=== PATIENT | female | born 1960 | race Hispanic/Latino ===

== ENCOUNTER 2017-03-28 17:51 | Emergency (ER) | payer MEDICARE, MEDICAID ==
[2017-03-28 17:51] VITALS: BMI 23.1
[2017-03-28 17:59] VITALS: PULSE 85; TEMP 96.8; O2SAT 98
[2017-03-28] MEDS ORDERED: Albuterol-Ipratrop 3 mg / 0.5 (3 ml) UD INH STA ×3 (18:12→19:15)
[2017-03-28 18:14] VITALS: RESP 20
--- NOTE | 2017-03-28 18:18 | ED PDOC ---
HPI: SOB/CHF/COPD Time Seen by Provider: 03/28/17 18:15 Chief Complaint (Nursing): Shortness Of Breath Chief Complaint (Provider): sob History Per: Patient (56 y/o female h/o Asthma here with worsening symptoms x 1 hour. Has used inhaler today and yesterday. Noted right sided chest pain ongoing since trip and fall onto edge of box. States she notes pain worse with coughing/movement and increased today with asthma exacerbation. Denies any h/o smoking. Denies any heart disease. No fever.) Past Medical History Reviewed: Historical Data, Nursing Documentation, Vital Signs Vital Signs: Last Vital Signs Temp 96.8 F L 03/28/17 17:56 Pulse 85 03/28/17 17:56 Resp 20 03/28/17 18:03 BP 139/100 H 03/28/17 17:56 Pulse Ox 98 03/28/17 18:20 - Medical History PMH: Asthma, HTN, Multiple Sclerosis - Surgical History Surgical History: Tonsillectomy - Family History Family History: States: Unknown Family Hx - Immunization History Hx Tetanus Toxoid Vaccination: No (not updated in past 5 years) - Home Medications Home Medications: Ambulatory Orders Medication Instructions Recorded Albuterol 0.5% [Albuterol 0.5% 2.5 mg IH Q4 PRN #20 neb 09/01/14 Inhal Radha (2.5 mg/0.5 ml) UD] Albuterol/Ipratropium [Duoneb 3 1 ea IH Q4 PRN #20 neb 09/02/14 MG/3 Ml-0.5 MG/3 Ml 3 Ml] Albuterol HFA [Ventolin HFA 90 2 puff IH Q4 PRN #1 inh 10/24/16 mcg/actuation (8 g)] Azithromycin [Zithromax] 250 mg PO DAILY #6 tab 10/24/16 Fluticasone/Salmeterol 250/50 1 puff IH Q12 #1 inh 10/24/16 [Advair Diskus] Prednisone 50 mg PO DAILY #5 tab 10/24/16 Promethazine/Dextromethorphan 5 ml PO Q6 PRN #1 bottle 10/24/16 [Promethazine-Dm Solution] Acetaminophen [Acetaminophen Extra 2 tab PO Q6 PRN #24 tablet 03/28/17 Strength] Naproxen [Naprosyn Tab] 1 tab PO TID PRN #15 tab 03/28/17 predniSONE [predniSONE Tab] 3 tab PO DAILY #12 tab 03/28/17 - Allergies Allergies/Adverse Reactions: Allergies Allergy/AdvReac Type Severity Reaction Status Date / Time No Known Allergies Allergy Verified 03/28/17 17:56 Review of Systems ROS Statement: Except As Marked, All Systems Reviewed And Found Negative Respiratory: Positive for: Cough, Shortness of Breath Physical Exam - Reviewed Nursing Documentation Reviewed: Yes Vital Signs Reviewed: Yes - Physical Exam Appears: Positive for: Well, Non-toxic, No Acute Distress Head Exam: Positive for: ATRAUMATIC, NORMAL INSPECTION, NORMOCEPHALIC Skin: Positive for: Normal Color, Warm, DRY Eye Exam: Positive for: EOMI, Normal appearance, PERRL ENT: Positive for: Normal ENT Inspection Neck: Positive for: Normal, Painless ROM Cardiovascular/Chest: Positive for: Regular Rate, Rhythm. Negative for: Chest Non Tender (right chest wall tender anteriorly approximately by rib 5/6) Respiratory: Positive for: Normal Breath Sounds, Wheezing, Respiratory Distress Gastrointestinal/Abdominal: Positive for: Normal Exam, Bowel Sounds, Soft Back: Positive for: Normal Inspection Extremity: Positive for: Normal ROM Neurologic/Psych: Positive for: Alert, Oriented - Laboratory Results Result Diagrams: 03/28/17 18:35 03/28/17 18:35 - ECG O2 Sat by Pulse Oximetry: 98 - Progress ED Course And Treament: EKG:NSR NO ECTOPY NO ACUTE CHANGES TORADOL 15 MG IV X 1 DOSE DUONEB X 1 DOSE SOLUMEDROL 125 MG IV X 1 DOSE CXR: NO OBVIOUS FX; NO PUEMOTHORAX RE-EXAMINED AT 19:45PM. WHEEZING RESOLVED. D/W PATIENT NEGATIVE CXR FINDINGS BUT POSSIBILITY OF OCCULT RIB FX. RESPIRATORY THERAPY TO GIVE INCENTIVE SPIROMETRY INSTRUCTIONS. PATIENT DOES NOT WANT ANY NARCOTIC PAIN MEDICATION. WILL WRITE FOR NAPROXEN Q8 AND TYLENOL PRN PAIN UNCONTROLLED BY NAPROXEN. D/W HER THESE INSTRUCTIONS. Disposition - Clinical Impression Clinical Impression: Rib injury, Asthma exacerbation - Patient ED Disposition Is Patient to be Admitted: No - Disposition Disposition: Routine/Home Disposition Time: 19:43 Condition: FAIR Prescriptions: Acetaminophen [Acetaminophen Extra Strength] 2 tab PO Q6 PRN #24 tablet PRN Reason: Pain, Moderate (4-7) Naproxen [Naprosyn Tab] 1 tab PO TID PRN #15 tab PRN Reason: Pain, Moderate (4-7) predniSONE [predniSONE Tab] 3 tab PO DAILY #12 tab Instructions: Rib Fracture (ED), Asthma (DC)
[2017-03-28 18:40] LABS: BASO # 0.1 K/uL (0.0-0.2); BASO % 1.1 % (0.0-2.0); EOS # 0.7 K/uL (0.0-0.7); EOS % 11.2 % (0.0-4.0); LYMPH # 1.9 K/uL (1.0-4.3); LYMPH % 29.7 % (20.0-40.0); MEAN CELL VOLUME 94.8 fl (81.0-99.0); MEAN CORPUSCULAR HEMOGLOBIN 31.6 pg (27.0-31.0); MEAN CORPUSCULAR HGB CONC 33.4 g/dL (33.0-37.0); MEAN PLATELET VOLUME 8.1 fl (7.2-11.7); MONO # 0.6 K/uL (0.0-0.8); MONO % 9.5 % (0.0-10.0); NEUT # 3.1 K/uL (1.8-7.0); NEUT % 48.5 % (50.0-75.0); NRBC % 0.1 % (0.0-0.0); RED CELL DISTRIBUTION WIDTH 14.5 % (11.5-14.5); WHITE BLOOD COUNT 6.4 K/uL (4.8-10.8)
[2017-03-28] MEDS ORDERED: Albuterol-Ipratrop 3 mg / 0.5 (3 ml) UD INH PRN (18:42)
[2017-03-28 18:50] LABS: ALB/GLOB RATIO 1.6 (1.0-2.1); ALKALINE PHOSPHATASE 104 U/L (38-126); ALT/SGPT 37 U/L (9-52); AST/SGOT 41 U/L (14-36); BILIRUBIN,TOTAL 0.4 mg/dl (0.2-1.3); BLOOD UREA NITROGEN 24 mg/dl (7-17); CALCIUM 9.6 mg/dL (8.4-10.2); CARBON DIOXIDE 27 mmol/L (22-30); CHLORIDE 105 mmol/L (98-107); GFR AFRICAN-AMERICAN > 60; GLUCOSE,RANDOM 90 mg/dL (65-105); POTASSIUM 3.7 MMOL/L (3.6-5.0); SODIUM 143 mmol/l (132-148); TOTAL PROTEIN 6.7 G/DL (6.3-8.2)
[2017-03-28 20:06] VITALS: BP 147/83
--- NOTE | 2017-03-29 11:24 | RAD ---
PROCEDURE: Radiographs of the Chest and Right Ribs. HISTORY: chest wall contusion evaluate for rib fx COMPARISON: 10/24/2016 TECHNIQUE: Frontal radiograph of the chest and multiple oblique radiographs of the right ribs were obtained. FINDINGS: RIGHT RIBS: No fracture or focal lesion visualized. LUNGS: Clear. PLEURA: No pneumothorax or pleural fluid. CARDIOVASCULAR: Normal sized heart. No pulmonary vascular congestion. OTHER FINDINGS: None. IMPRESSION: Unremarkable radiographs of the chest and right ribs. No right rib fracture.
== END 2017-03-28 20:05 | disposition home or self-care (01) ==
LOC: H.ER 17:51
DX: J45.901 Unspecified asthma with (acute) exacerbation (principal); S29.9XXA Unspecified injury of thorax, initial encounter; W01.0XXA Fall on same level from slipping, tripping and stumbling without subsequent striking against object, initial encounter; G35 Multiple sclerosis; I10 Essential (primary) hypertension
CPT/HCPCS: 71101; 80053; 84484; 85025; 94150; 94640; 96374; 96375; 99284; J1885; J2930

== ENCOUNTER 2017-06-16 18:29 | Emergency (ER) | payer MEDICARE, MEDICAID ==
[2017-06-16 18:29] VITALS: BMI 23.1
[2017-06-16 18:43] VITALS: BP 154/92; PULSE 84; RESP 18; TEMP 97.6; O2SAT 96
[2017-06-16] MEDS ORDERED: Albuterol-Ipratrop 3 mg / 0.5 (3 ml) UD INH STA ×2 (19:20→21:03)
--- NOTE | 2017-06-16 19:25 | ED PDOC ---
HPI: SOB/CHF/COPD Chief Complaint (Provider): cough, congestion History Per: Patient History/Exam Limitations: no limitations Onset/Duration Of Symptoms: Days (7) Current Symptoms Are (Timing): Still Present Initiating Event: Upper Respiratory Illness Quality: Tightness, Pressure, "Pain" (tender ) Current Respiratory Medications: Albuterol Associated Symptoms: Fever, Sweating, Chest Pain Additional History Per: Patient <Reg Masters - Last Filed: 06/16/17 20:56> <Melissa Bañuelos - Last Filed: 06/16/17 23:33> Time Seen by Provider: 06/16/17 18:55 Chief Complaint (Nursing): Cough, Cold, Congestion Additional Complaint(s): 56 year old female presents to ED with complaints of cough, chest congestion for the past seven days. She has history of asthma, and has been using her albuterol pump and duonebs at home without relief of her symptoms. Also took Zpack which she finished today and 3 days of PO prednisone 50mg without improvement. Chest congestion on right chest, dyspnea at rest but able to speak in full sentences. Anterior chest tenderness, reproducible, not positional. She has not seen her doctor in some time, previously on Dulera but she ran out. Endorses her symptoms always worsen in the summertime. Sick contacts include her daughter and her partner both of which were ill with similar symptoms. PCP: Wes Saravia (Reg Masters) Past Medical History - Medical History PMH: Asthma, HTN, Multiple Sclerosis - Surgical History Surgical History: Tonsillectomy - Family History Family History: States: Unknown Family Hx - Immunization History Hx Tetanus Toxoid Vaccination: No (not updated in past 5 years) <Reg Masters - Last Filed: 06/16/17 20:56> <Melissa Bañuelos - Last Filed: 06/16/17 23:33> Vital Signs: Last Vital Signs Temp 97.6 F 06/16/17 18:39 Pulse 84 06/16/17 18:39 Resp 18 06/16/17 18:39 BP 154/92 H 06/16/17 18:39 Pulse Ox 96 06/16/17 20:57 - Home Medications Home Medications: Ambulatory Orders Medication Instructions Recorded Albuterol 0.5% [Albuterol 0.5% 2.5 mg IH Q4 PRN #20 neb 09/01/14 Inhal Radha (2.5 mg/0.5 ml) UD] Albuterol/Ipratropium [Duoneb 3 1 ea IH Q4 PRN #20 neb 09/02/14 MG/3 Ml-0.5 MG/3 Ml 3 Ml] Albuterol HFA [Ventolin HFA 90 2 puff IH Q4 PRN #1 inh 10/24/16 mcg/actuation (8 g)] Azithromycin [Zithromax] 250 mg PO DAILY #6 tab 10/24/16 Fluticasone/Salmeterol 250/50 1 puff IH Q12 #1 inh 10/24/16 [Advair Diskus] Prednisone 50 mg PO DAILY #5 tab 10/24/16 Promethazine/Dextromethorphan 5 ml PO Q6 PRN #1 bottle 10/24/16 [Promethazine-Dm Solution] Acetaminophen [Acetaminophen Extra 2 tab PO Q6 PRN #24 tablet 03/28/17 Strength] Naproxen [Naprosyn Tab] 1 tab PO TID PRN #15 tab 03/28/17 predniSONE [predniSONE Tab] 3 tab PO DAILY #12 tab 03/28/17 Albuterol 0.083% [Albuterol 0.083% 3 ml IH Q6H PRN #30 neb 06/16/17 Inhal Radha (2.5 mg/3 ml) UD] Benzonatate [Tessalon Perle] 100 mg PO TID PRN #15 capsule 06/16/17 Mometasone/Formoterol [Dulera] 2 carol IH BID PRN #1 carol 06/16/17 Prednisone 50 mg PO DAILY #4 tab 06/16/17 - Allergies Allergies/Adverse Reactions: Allergies Allergy/AdvReac Type Severity Reaction Status Date / Time No Known Allergies Allergy Verified 03/28/17 17:56 Review of Systems Constitutional: Positive for: Fever, Chills, Sweats Cardiovascular: Positive for: Chest Pain (anterior chest, reproducible non radiating). Negative for: Palpitations, Light Headedness Respiratory: Positive for: Cough (non productive, feels pressure on right chest) , Shortness of Breath, Wheezing Gastrointestinal: Negative for: Nausea, Vomiting, Abdominal Pain, Diarrhea, Constipation Skin: Negative for: Rash <Masters,Jamilett - Last Filed: 06/16/17 20:56> Physical Exam - Physical Exam Appears: Positive for: Uncomfortable Skin: Positive for: Normal Color, Warm, Dry. Negative for: Pallor Eye Exam: Positive for: Normal appearance ENT: Positive for: Normal ENT Inspection Neck: Positive for: Supple Cardiovascular/Chest: Positive for: Regular Rate, Rhythm. Negative for: JVD, Tachycardia Respiratory: Positive for: Rhonchi, Wheezing (diffuse inspiratory/expiratory wheezing, cough induced on deep inspiration) Gastrointestinal/Abdominal: Positive for: Soft. 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 Negative for: Motor/Sensory Deficits <Reg Masters - Last Filed: 06/16/17 20:56> - Laboratory Results Result Diagrams: 06/16/17 19:49 06/16/17 19:49 - ECG O2 Sat by Pulse Oximetry: 96 <Reg Masters - Last Filed: 06/16/17 20:56> - Laboratory Results Result Diagrams: 06/16/17 19:49 06/16/17 19:49 <Melissa Bañuelos - Last Filed: 06/16/17 23:33> - Progress ED Course And Treament: 56 year old female with likely asthma exacerbation secondary to viral illness, rule out pneumonia. * duoneb * cbc * cmp * troponin * cxr * solumedrol case d/w Dr. Bañuelos. 20:45: CXR reviewed, report pending. Mild leukocytosis: 11.8, BUN 30 (Reg Masters) Medical Decision Making <Reg Masters - Last Filed: 06/16/17 20:56> <Melissa Bañuelos - Last Filed: 06/16/17 23:33> Medical Decision Making: Patient seen and evaluated with resident, mild wheeze present on physical exam. Upon re-evaluation, patient reports she feels much better and is wishing to go home. States she will return if she feels worse. Pt with continued wheezing, will sign out AMA. This patient is choosing to leave against medical advice. I have personally explained to the pt that choosing to do so may result in permanent bodily harm or . I have discussed at great length that without further evaluation and monitoring there may be unforeseen circumstances and/or deterioration causing permanent bodily harm or as a result of their choice. The pt verbalized these risks back to the physician in laymans terms. The pt is alert, oriented, and shows the mental capacity to make clear decisions regarding the pts health care at this time. The pt continues to wish to leave against medical advice. In light of the pts decision to leave AMA, follow-up has been arranged and the pt is aware of the importance of following up as instructed. The pt has been advised that they should return to the ED immediately if they change their mind at any time, or if their condition begins to change or worsen in any way. (Melissa Bañuelos) Disposition <Reg Masters - Last Filed: 06/16/17 20:56> - Disposition Disposition: Against Medical Advice Disposition Time: 22:40 <Melissa Bañuelos - Last Filed: 06/16/17 23:33> - Clinical Impression Clinical Impression: Asthma exacerbation - Disposition Referrals: Wes Saravia, DNP, [employer] [Advanced Practice Nurse] - Condition: UNKNOWN Prescriptions: Albuterol 0.083% [Albuterol 0.083% Inhal Radha (2.5 mg/3 ml) UD] 3 ml IH Q6H PRN # 30 neb PRN Reason: Shortness Of Breath Benzonatate [Tessalon Perle] 100 mg PO TID PRN #15 capsule PRN Reason: Cough Mometasone/Formoterol [Dulera] 2 carol IH BID PRN #1 carol PRN Reason: Shortness Of Breath Prednisone 50 mg PO DAILY #4 tab Instructions: Asthma (ED)
[2017-06-16] MEDS ORDERED: Albuterol-Ipratrop 3 mg / 0.5 (3 ml) UD ONE ×2 (19:59→21:42)
[2017-06-16 20:09] LABS: BASO # 0.1 K/uL (0.0-0.2); BASO % 0.9 % (0.0-2.0); EOS # 0.1 K/uL (0.0-0.7); EOS % 0.6 % (0.0-4.0); HEMATOCRIT 36.9 % (34.0-47.0); LYMPH # 2.7 K/uL (1.0-4.3); LYMPH % 22.9 % (20.0-40.0); MEAN CORPUSCULAR HEMOGLOBIN 31.4 pg (27.0-31.0); MEAN CORPUSCULAR HGB CONC 32.7 g/dL (33.0-37.0); MEAN PLATELET VOLUME 8.4 fl (7.2-11.7); MONO # 1.2 K/uL (0.0-0.8); MONO % 10.4 % (0.0-10.0); NEUT # 7.7 K/uL (1.8-7.0); NEUT % 65.2 % (50.0-75.0); WHITE BLOOD COUNT 11.8 K/uL (4.8-10.8)
[2017-06-16 20:11] LABS: ALB/GLOB RATIO 1.8 (1.0-2.1); ALKALINE PHOSPHATASE 102 U/L (38-126); ALT/SGPT 39 U/L (9-52); AST/SGOT 23 U/L (14-36); BILIRUBIN,TOTAL 0.5 mg/dl (0.2-1.3); BLOOD UREA NITROGEN 30 mg/dl (7-17); CALCIUM 9.4 mg/dL (8.4-10.2); CARBON DIOXIDE 27 mmol/L (22-30); CHLORIDE 104 mmol/L (98-107); GFR AFRICAN-AMERICAN > 60; GLUCOSE,RANDOM 76 mg/dL (65-105); POTASSIUM 3.7 MMOL/L (3.6-5.0); SODIUM 139 mmol/l (132-148); TOTAL PROTEIN 6.6 G/DL (6.3-8.2)
--- NOTE | 2017-06-17 10:49 | RAD ---
HISTORY: Cough COMPARISON: Prior chest with right ribs 03/28/2017. TECHNIQUE: Chest PA and lateral FINDINGS: LUNGS: No active pulmonary disease. PLEURA: No significant pleural effusion identified. No pneumothorax apparent. CARDIOVASCULAR: Normal. OSSEOUS STRUCTURES: No significant abnormalities. VISUALIZED UPPER ABDOMEN: Normal. OTHER FINDINGS: None. IMPRESSION: No interval cardiopulmonary yes disease.
--- NOTE | 2017-06-17 13:24 | CARD ---
APPROVED REPORT EKG Measurement Heart [id number] <Conclusion> Sinus rhythm with short OH Minimal voltage criteria for LVH, may be normal variant Borderline ECG
== END 2017-06-17 00:10 | disposition left against medical advice (07) ==
LOC: H.ER 18:29
DX: J45.901 Unspecified asthma with (acute) exacerbation (principal)
CPT/HCPCS: 71020; 80053; 84484; 85025; 87040; 93005; 94640; 96374; 99282; J2930